=== PATIENT | male | born 1995 | race Caucasian/White ===

== ENCOUNTER 2018-07-11 17:19 | Emergency (ER) | payer SELFPAY ==
[~2018-07-11] VITALS: Ht 175.3 cm; Wt 68.0 kg
[2018-07-11] MEDS ORDERED: IBUPROFEN 600MG TABLET PO ONE (20:00)
[2018-07-11 21:39] VITALS: BP 122/67
== END 2018-07-11 21:41 | disposition home or self-care (01) ==
LOC: ER 17:19
DX: M79.641 Pain in right hand (principal)
CPT/HCPCS: 29125; 73120; 99283

== ENCOUNTER 2020-04-29 21:14 | Emergency (ER) | payer BC ==
[~2020-04-29] VITALS: Ht 182.9 cm; Wt 70.8 kg
[2020-04-29] MEDS ORDERED: IBUPROFEN 600MG TABLET PO ONE (23:15)
== END 2020-04-30 01:57 | disposition home or self-care (01) ==
LOC: ER 21:14
DX: S62.91XA Unspecified fracture of right hand, initial encounter for closed fracture (principal); W22.8XXA Striking against or struck by other objects, initial encounter; Y93.89 Activity, other specified; Y92.89 Other specified places as the place of occurrence of the external cause; Y99.8 Other external cause status
CPT/HCPCS: 29125; 73130; 99283